=== PATIENT | male | born 1950 | race Caucasian/White ===

== ENCOUNTER 2018-04-30 11:52 | Day surgery (SDC) | payer MEDICARE ==
--- NOTE | 2018-04-30 07:38 | History and Physical Report ---
DATE: 04/29/2018. CHIEF COMPLAINT AND HISTORY OF CHIEF COMPLAINT: This is a patient with a history of an intractable lumbar radiculopathy. He had a spinal cord stimulator trial conducted on 03/31/2018 with 75 to 85 percent pain control. Due to the failure of all therapy and the success of the trial, the patient presents today for implantation of a permanent system. PAST MEDICAL HISTORY: Hypertension, chronic abdominal and colon disease. PAST SURGICAL HISTORY: Bilateral hip surgery, gallbladder surgery. MEDICATIONS ON ADMISSION: To be provided. ALLERGIES: Erythromycin. SOCIAL HISTORY: Caffeine. FAMILY HISTORY: Noncontributory. REVIEW OF SYSTEMS: The patient is appropriate and in no acute distress. The remainder of the systems review shows glasses, blood pressure problems, degenerative arthritis. PHYSICAL EXAMINATION: General: Height and weight are unknown. Vital Signs: Unavailable. HEENT: Within normal limits. Lungs: Clear. Heart: Regular rate and rhythm. Abdomen: Nontender. Musculoskeletal: Examination of the musculoskeletal system shows diffuse tenderness in the lumbar spine. Range of motion produces pain into the low back and bilateral lower extremities. Motor and sensory field functionality shows no specific deficits across the sensory dermatomes. No motor weakness. Ambulation: No assistive device utilized. Neurologic: Cranial nerves are intact. IMPRESSION: LUMBAR RADICULOPATHY, ICD-10 CODE M54.16 AND M54.17. PLAN: The patient is here for implantation of a permanent spinal cord stimulator after the failure of therapies and the success of the trial. The procedure will be considered outpatient, although an overnight stay will be evaluated. JOB NUMBER: [id number] cc: Marilee Li
[~2018-04-30 11:52] MED LIST: ACETAMINOPHEN 1,000 MG/100 ML BTL IV ONE; CEFAZOLIN 2 Gram 2 GM/50 ML BAG IVPB ONE; FAMOTIDINE 20MG TABLET PO ONE; MECLIZINE 25 MG TABLET PO ONE; METOCLOPRAMIDE 10 MG TABLET PO ONE
[2018-04-30] MEDS ORDERED: BUPIVACAINE 0.5% W/EPI MPF 30 ML VIAL IVP ONE (11:53)
[2018-04-30] MEDS ORDERED: CEFAZOLIN 1G VIAL IM ONE (11:53)
[2018-04-30] MEDS ORDERED: LIDOCAINE 2% MDV (20MG/ML) 20ML VIAL IV ONE (11:53)
[2018-04-30] MEDS ORDERED: LIDOCAINE 1% W/EPI 1:200,000 MPF 30ML SQ ONE (11:53)
[2018-04-30] MEDS ORDERED: PROPOFOL 10 MG/ML VIAL IV ONE (11:53)
[2018-04-30] MEDS ORDERED: MIDAZOLAM HCL 2MG/2ML VIAL IV ONE (11:53)
[2018-04-30] MEDS ORDERED: FENTANYL PF 100MCG/2ML VIAL IV ONE (11:53)
[2018-04-30] MEDS ORDERED: HYDROMORPHONE HCL 2 MG/ML VIAL IV ONE (11:53)
[2018-04-30] MEDS ORDERED: METOCLOPRAMIDE HCL 10 MG/2 ML VIAL IVP PRN (15:42)
[2018-04-30] MEDS ORDERED: METOCLOPRAMIDE 10 MG TABLET PO PRN (15:42)
[2018-04-30] MEDS ORDERED: AL HYDROX/MAG HYDROX 30ML UD PO PRN (15:42)
[2018-04-30] MEDS ORDERED: ACETAMINOPHEN 325 MG TAB PO PRN ×2 (15:42)
[2018-04-30] MEDS ORDERED: OXYCODONE/APAP 10MG-325MG TABLET PO PRN (15:42)
[2018-04-30] MEDS ORDERED: SENNOSIDES/DOCUSATE SODIUM UD CAPSULE PO PRN ×2 (15:42)
[2018-04-30] MEDS ORDERED: HYDROMORPHONE HCL 2 MG/ML VIAL IM PRN ×2 (15:42)
[2018-04-30] MEDS ORDERED: DIPHENHYDRAMINE HCL 50 MG/ML VIAL IVP PRN ×2 (15:42)
[2018-04-30] MEDS ORDERED: HYDROCODONE/APAP 7.5/325MG TABLET PO PRN (15:42)
[2018-04-30] MEDS ORDERED: TEMAZEPAM 15 MG CAPSULE PO PRN ×2 (15:42)
[2018-04-30] MEDS ORDERED: DIPHENHYDRAMINE HCL 25 MG CAPSULE PO PRN ×2 (15:42)
[2018-04-30] MEDS: GABAPENTIN 300 MG CAPSULE PO SCH ×2 (15:49→23:04)
[2018-04-30] MEDS: GABAPENTIN 100 MG CAPSULE PO SCH ×2 (15:49→23:05)
[2018-04-30] MEDS: OXYCODONE/APAP 10MG-325MG TABLET PO PRN ×2 (18:28→19:17)
[2018-04-30] MEDS: CEFAZOLIN 2 Gram 2 GM/50 ML BAG IVPB SCH (21:30)
[2018-04-30] MEDS: 0.9 % SODIUM CHLORIDE 10ML SYR IVP SCH (23:27)
[2018-05-01] MEDS: HYDROCODONE/APAP 7.5/325MG TABLET PO PRN ×3 (01:13→06:55)
[2018-05-01] MEDS: CEFAZOLIN 2 Gram 2 GM/50 ML BAG IVPB SCH ×2 (05:24→12:28)
[2018-05-01] MEDS: GABAPENTIN 300 MG CAPSULE PO SCH (09:38)
[2018-05-01] MEDS: 0.9 % SODIUM CHLORIDE 10ML SYR IVP SCH (09:39)
[2018-05-01] MEDS: GABAPENTIN 100 MG CAPSULE PO SCH (09:39)
[2018-05-01] MEDS ORDERED: LOSARTAN POTASSIUM 25 MG TABLET PO SCH (10:00)
--- NOTE | 2018-05-02 08:34 | RADIOLOGY REPORT ---
EXAM: AP VIEW OF THE LOWER THORACIC AND LUMBAR SPINES HISTORY: POSTOP. TECHNIQUE: A single AP view of the lower thoracic and lumbar spines was obtained. Comparison: None. FINDINGS: There are two stimulating wires, however, the proximal tips extend off the superior margin of the film. Post surgical changes in the abdomen. IMPRESSION: THE PROXIMAL TIPS OF THE STIMULATING WIRES PROJECT OFF OF THE SUPERIOR MARGIN OF THE FILM. JOB NUMBER: [id number] MTDD
--- NOTE | 2018-05-02 23:14 | Operative Note - [place] ---
DATE OF SURGERY: 04/30/18 PREOPERATIVE DIAGNOSIS: LUMBAR RADICULOPATHY, ICD-10 CODE = M54.16 AND M54.17. SURGERY: 1. FLUOROSCOPIC-GUIDED EPIDURAL ACCESS RIGHT T12-L1, PLACEMENT OF SPINAL CORD STIMULATOR LEAD 1, A [employer] INFINION 16 WITH 6 ELECTRODES POSITIONED LEFT T7. 2. FLUOROSCOPIC-GUIDED EPIDURAL ACCESS RIGHT T11-12, PLACEMENT OF SPINAL CORD STIMULATOR LEAD 2, A [employer] INFINION 16 WITH 6 ELECTRODES POSITIONED RIGHT T7. 3. COMPLEX PROGRAMMING OF LEAD 1, OVER 20 MINUTES FOLLOWED BY COMPLEX PROGRAMMING OF LEAD 2, OVER 20 MINUTES. 4. INCISION, SUBCUTANEOUS DISSECTION, AND ANCHORING OF LEAD 1 AND LEAD 2 TO SUPRASPINOUS FASCIA USING A [employer] LOCKING ANCHOR. 5. INCISION, SUBCUTANEOUS DISSECTION, AND CREATION OF SUBCUTANEOUS POUCH AT RIGHT POSTERIOR GLUTEAL MARGIN FOR PLACEMENT OF GENERATOR IDENTIFIED A [employer] PROGRAMMABLE, RECHARGEABLE WAVEWRITER. 6. TUNNELING BETWEEN POUCHES, PLACEMENT OF EXTERNAL PORTION OF LEAD 1 AND LEAD 2 INTO GENERATOR POUCH, EACH LEAD INTERFACED TO THE GENERATOR. 7. PLACEMENT OF GENERATOR POUCH SECURING TO POSTERIOR FASCIA WITH NONABSORBABLE SUTURE, PLACEMENT OF LEADS INTO POUCH, CLOSURE OF BOTH INCISIONS WITH VICRYL FOR FASCIA, RUNNING SUBCUTICULAR VICRYL FOR SKIN. DERMABOND CLOSURE. 8. COMPLEX RECOVERY ROOM PROGRAMMING INTERNAL GENERATOR HOME USE, TWO STIMULATORS, 20 MINUTES. SURGEON: KARLA CURTIS D.O. ANESTHESIA: LOCAL SEDATION. ANESTHESIA PROVIDER: RONNIE SAMUEL CRNA. INDICATIONS: This patient presents with a history of intractable lumbar radiculopathy. Due to the failure of therapy, a spinal cord stimulator trial was conducted with 75 to 85% pain control. Due to the failure of other therapies and the success of the stimulator trial, he presents today for implantation of a permanent system. SURGERY: Intravenous line, vital sign monitoring, IV sedation. Prepped and draped sterile technique. Patient prone. Under imaging, the epidural interspace at T12-L1 and 11-12 were marked on the skin and infiltrated on the right of the midline. Using a standard epidural needle with a [id number], the epidural space was accessed. At 12-1, spinal cord stimulator lead 1, a [employer] Infinion 16 with 6 electrodes positioned left of the midline at T7. With the epidural access, same technique at 11-12 spinal cord stimulator lead 2 , a [employer] Infinion 16 with 6 electrodes, positioned right of the midline at T7. Complex programming of lead 1 over 20 minutes followed by complex programming of lead 2 over 20 minutes resulting in a complete pattern of stimulation across the back and into the legs,. Patient indicating we were in all the areas of the pain. The skin above and below both needles was then infiltrated, incision made, and subcutaneous dissection was conducted to the supraspinous fascia. After the needle was removed, each lead was then anchored to the supraspinous fascia with a [employer] locking anchor. At the right posterior gluteal margin, a site picked by the patient for the generator, skin infiltrated, incision made and subcutaneous dissection was conducted to form a pouch of suitable size and depth for the generator identified as a [employer] programmable, rechargeable WaveWriter. A tunneling tool was then used to carry the leads into the generator pouch and then each lead was interfaced to the generator. Antibiotic irrigation and Bovie for hemostasis. The generator was placed into the pouch and secured to the fascia with nonabsorbable suture. The leads were placed into their own pouch and then both incisions were closed with Vicryl for fascia and a running subcuticular Vicryl for skin. A Dermabond closure was then placed approximating the edges of the wounds. The patient was transported to the Recovery Room stable. No side- effects from the procedure or the sedation. Full functionality of the extremities. When fully awake and alert, complex programming of the internal generator was then performed over 20 minutes reestablishing stimulation and pain control to all the appropriate areas. The patient will be kept over night for observation and discharged in the morning. DISCHARGE INSTRUCTIONS: 1. The sites are to remain clean and dry. No showering or bathing in any way that would disrupt dressings, although the Dermabond will allow showing. No bathing or sitting in water. 2. Standard medications resumed, including Levaquin, the antibiotic 500 mg once a day for 14 days. 3. The office will contact the patient at home and set up an evaluation to evaluate the sites in 10 to 14 days. Through this period of time, he is to keep his activities controlled. Limit bend, lift, push, pull. Once he is seen to evaluate the sites, we will clear him for further activities. All other instructions provided, numbers to contact if problems have been given. He will be seen in the office. cc: Dr. Kanika Shaw JOB NUMBER: [id number] MTDD
== END 2018-05-01 13:10 | disposition home or self-care (01) ==
LOC: SUR 11:52 → MEDSURG 15:53 → SUR 05-01 13:10
PROVIDERS: ATTEND Pain Medicine Interventional Pain Medicine
DX: M54.16 Radiculopathy, lumbar region (principal); M54.17 Radiculopathy, lumbosacral region; I10 Essential (primary) hypertension
CPT/HCPCS: 72020; 95972; C1820; C1883; J0690